=== PATIENT | female | born 1960 ===

== ENCOUNTER 2017-10-08 10:23 | Day surgery (SDC) | payer OTHER ==
--- NOTE | 2017-10-07 14:32 | GHP ---
[f rep st] PREOP HISTORY AND PHYSICAL DATE OF ADMISSION: 10/08/2017 CHIEF COMPLAINT: Breast hypertrophy. HISTORY OF PRESENTING COMPLAINT: The patient is a 56-year-old woman who has been bothered by excessi ve breast size for many years. The size has increased with menopause. She complains of neck, back, and shoulder pain. PAST MEDICAL HISTORY: She is a generally healthy nonsmoker. SURGICAL HISTORY: Includes left total hip replacement in 2014, uterine ablation in 2006. MEDICATIONS: Hormone replacement and Lexapro. ALLERGIES: Percocet, causing nausea. EXAMINATION: GENERAL: She is a healthy-looking 56-year-old woman. CARDIOVASCULAR: Heart sounds are normal. RESPIRATORY: Clear with good air entry. BREASTS: Breast hypertrophy. IMPRESSION: Fit for procedure. PLAN: Bilateral breast reduction mammoplasty. /[id number]/MODL
[2017-10-08] MEDS ORDERED: LIDOCAINE 1% 2 ML INJ ONE (10:45)
[2017-10-08] MEDS ORDERED: ceFAZolin 2 GM/SWFI 2 GM/20 ML SYR IVP ONE (10:46)
--- NOTE | 2017-10-08 10:48 | PDHPUP ---
History & Physical Update H&P update statement: This history and physical update is based on an assessment of the patient which was completed after admission or registration (within 24 hours), but prior to the surgery/procedure.
[2017-10-08] MEDS ORDERED: LIDOCAINE 1% 2 ML INJ ID PRN (10:52)
[2017-10-08] MEDS ORDERED: LR 1,000 ML IV ONE (10:52)
[2017-10-08] MEDS ORDERED: LIDO/EPI 1% **for epidural** 30 ML SDV ONE (12:13)
[2017-10-08] MEDS ORDERED: LIDOCAINE/EPINEPHRINE 0.5% 50 ML MDV ONE (13:47)
[2017-10-08] MEDS ORDERED: SCOPOLAMINE HYDROBROMIDE 1 MG/3 DAYS PATCH TD ONE ×2 (13:48→13:51)
--- NOTE | 2017-10-08 13:52 | PDANEPAE ---
ANE History of Present Illness Patient presents for bilateral breast reduction ANE Past Medical History - Cardiovascular History Hx Hypertension: No Hx Arrhythmias: No Hx Chest Pain: No Hx Coronary Artery / Peripheral Vascular Disease: No Hx CHF / Valvular Disease: No Hx Palpitations: No - Pulmonary History Hx COPD: No Hx Asthma/Reactive Airway Disease: No Hx Recent Upper Respiratory Infection: No Hx Oxygen in Use at Home: No Hx Sleep Apnea: No Sleep Apnea Screening Result - Last Documented: Negative - Neurologic History Hx Cerebrovascular Accident: No Hx Seizures: No Hx Dementia: No - Endocrine History Hx Diabetes: No - Renal History Hx Renal Disorders: No - Liver History Hx Hepatic Disorders: No - Neurological & Psychiatric Hx Hx Neurological and Psychiatric Disorders: No - Cancer History Hx Cancer: No - Congenital Disorder History Hx Congenital Disorders: No - GI History Hx Gastrointestinal Disorders: Yes Gastrointestinal History Comment: gastritis 2013 - Other Health History Other Health History: fungus,right side labia - Chronic Pain History Chronic Pain: No - Surgical History Prior Surgeries: hip surgery 2014 ANE Review of Systems Review of Systems: - Exercise capacity METS (RN): 5 METS ANE Patient History - Allergies Allergies/Adverse Reactions: oxycodone [From Percocet] Allergy (Intermediate, Verified 09/15/17 15:24) Hives Sulfa (Sulfonamide Antibiotics) Allergy (Intermediate, Verified 09/15/17 15:27) Rash hydrocodone [From [place]] Allergy (Mild, Verified 09/15/17 15:26) Vomiting - Home Medications Home medications: home medication list seen and reviewed Home Medications: Estrodial 09/15/17 [Last Taken 10/06/17] Lexapro 09/15/17 [Last Taken 10/06/17] Progesterone 09/15/17 [Last Taken 10/06/17] - NPO status NPO Status: no food or drink >8 hours NPO Since - Liquids (Date): 10/07/17 NPO Since - Liquids (Time): 23:30 NPO Since - Solids (Date): 10/07/17 NPO Since - Solids (Time): 22:30 - Anes Hx Anes Hx: no prior problems, post operative nausea, post operative nausea and vomiting - Smoking Hx Smoking Status: Never smoked - Family Anes Hx Family Hx Anesthesia Complications: sister sensitive ANE Labs/Vital Signs - Vital Signs Blood Pressure: 113/63 Heart Rate: 81 Respiratory Rate: 16 O2 Sat (%): 96 Height: 170.18 cm Weight: 77.111 kg ANE Physical Exam - Airway Neck exam: FROM Mallampati Score: Class 2 Mouth exam: normal dental/mouth exam - Pulmonary Pulmonary: no respiratory distress - Cardiovascular Cardiovascular: regular rate and rhythym - ASA Status ASA Status: I, II ANE Anesthesia Plan Anesthesia Plan: general endotracheal anesthesia (TIVA, RBA discussed)
[2017-10-08] MEDS ORDERED: fentaNYL 100 MCG/2 ML INJ ONE ×3 (13:55→16:41)
[2017-10-08] MEDS ORDERED: PROPOFOL 200 MG/20 ML VIAL ONE (13:56)
[2017-10-08] MEDS ORDERED: PROPOFOL/EMULSION 500 MG/50 ML BOTTLE IV ONE ×3 (13:56→15:11)
[2017-10-08] MEDS ORDERED: METOCLOPRAMIDE 10 MG/2 ML VIAL ONE (13:56)
[2017-10-08] MEDS ORDERED: DEXAMETHASONE 4 MG/ML VIAL ONE (13:56)
[2017-10-08] MEDS ORDERED: ROCURONIUM 50 MG/5 ML VIAL ONE ×2 (13:57→14:53)
[2017-10-08] MEDS ORDERED: ONDANSETRON 4 MG/2 ML VIAL ONE ×2 (13:57→16:32)
[2017-10-08] MEDS ORDERED: ceFAZolin 1 GM VIAL ONE (14:39)
[2017-10-08] MEDS ORDERED: ONDANSETRON 4 MG/2 ML VIAL IVP PRN (15:43)
[2017-10-08] MEDS ORDERED: NALOXONE HCL 0.4 MG/ML INJ IVP PRN (15:43)
[2017-10-08] MEDS ORDERED: ACETAMINOPHEN 500 MG TAB PO PRN (15:43)
[2017-10-08] MEDS ORDERED: LR 500 ML IV PRN (15:43)
[2017-10-08] MEDS ORDERED: fentaNYL 100 MCG/2 ML INJ IVP PRN (15:43)
[2017-10-08] MEDS ORDERED: PROMETHAZINE HCL 25 MG/ML INJ IVP PRN (15:43)
[2017-10-08] MEDS ORDERED: SUGAMMADEX SODIUM 200 MG/2 ML VIAL IVP ONE (15:47)
--- NOTE | 2017-10-08 16:26 | POSTOPPROG ---
Post Op Note Date of Operation: 10/08/17 Surgeon: Sahil Cunningham Anesthesiologist: Rob Kinney Anesthesia: GET(General Endotracheal) Pre-op Diagnosis: Breast Hypertrophy Post-op Diagnosis: same Procedure: Breast Reduction Inf/Abcess present in the surg proc area at time of surgery?: No EBL: 50-100 Drains: Carlin Bell Specimen(s): Breast gland. Normal in appearance
--- NOTE | 2017-10-08 16:34 | POSTANESTH ---
Post Anesthetic Evaluation Cardiovascular Status: Similar to Pre-Op Cond Respiratory Status: Similar to Pre-op Cond. Level of Consciousness/Mental Status: Can Participate in Eval Pain Control: Adequate, Prn Tx Ordered Nausea/Vomiting Control: Adequate, Prn Tx Ordered Complications Possibly Related to Anesthesia: None Noted
--- NOTE | 2017-10-08 16:53 | GOP ---
[f rep st] OPERATIVE REPORT DATE OF OPERATION: 10/08/2017 SURGEON: Sahil Cunningham MD PREOPERATIVE DIAGNOSIS: Breast hypertrophy. POSTOPERATIVE DIAGNOSIS: Breast hypertrophy. PROCEDURE PERFORMED: Bilateral breast reduction. FINDINGS: DESCRIPTION OF PROCEDURE: With the patient lying supine under general anesthesia, anterior chest region prepped and draped in usual fashion. Incisions were made for a modified vertical pattern breast reduction with superior medial pedicle technique. Pedicles were de-epithelialized, and skin and subcutaneous fat flaps were elevated off underlying gland completely freeing up the gland. The glandular mass was then reduced appropriately. A total of 651 g was removed from the right side and 783 g from the left side. Bleeders were controlled with electrocautery. Carlin-Bell drains were placed bilaterally and closure was carried out with 3-0 Stratafix running subcuticular sutures. Dressing of Steri-Strips and gauze was applied. Procedure was tolerated well. Estimated blood loss 50 mL. /[id number]/MODL MTDD
[2017-10-08 17:04] VITALS: TEMP 97.3
[2017-10-08 17:20] VITALS: BP 117/69; PULSE 75; RESP 14; O2SAT 96
[2017-10-08] MEDS ORDERED: ACETAMINOPHEN 500 MG TAB ONE (17:56)
== END 2017-10-08 18:27 | disposition home or self-care (01) ==
LOC: FSGY 10:23
PROVIDERS: ATTEND Plastic Surgery
PROC: 0HBV0ZZ Excision of Bilateral Breast, Open Approach (ICD-10-PCS; principal; 2017-10-08 12:30)
DX: N62 Hypertrophy of breast (principal); M25.511 Pain in right shoulder; M54.2 Cervicalgia; M54.9 Dorsalgia, unspecified; Z79.890 Hormone replacement therapy; Z96.642 Presence of left artificial hip joint
CPT/HCPCS: J0690; J1100; J2405; J2704; J2765; J3010